=== PATIENT | female | born 1995 | race Caucasian/White ===

== ENCOUNTER 2017-11-22 13:46 | Emergency (ER) | payer SELFPAY ==
[2017-11-22 13:47] VITALS: BP 146/79; PULSE 88; RESP 16; TEMP 99; O2SAT 99
[2017-11-22] MEDS ORDERED: TYLE325T PO (16:16)
[2017-11-22] MEDS ORDERED: IBUP1TAB5 PO (16:16)
[2017-11-22] MEDS ORDERED: CHLO.12%30 SWISH-SPIT (17:02)
[2017-11-22] MEDS ORDERED: AUGM875T3 PO (17:02)
--- NOTE | 2017-11-22 17:05 | PD ---
HPI Chief Complaint: Oral / Dental Pain or Problem Time Seen by Provider: 16:24 Travel History International Travel<30 days: No Contact w/Intl Traveler<30days: No Traveled to known affect area: No History of Present Illness HPI 22-year-old female presents emergency department for evaluation of toothache and left cheek swelling 2 weeks. The pain is associated with tooth #17. Tooth has visible decay. Patient stated the pain was so severe it is difficult to open her jaw approximately a week ago. Upon assessment today and patient can open and shut her jaw without clicking, popping or pain. There is mild gingival erythema with abscess that is already open and draining. Patient denies any fever, chills, malaise. Patient denies any shortness breath, chest pain. Patient denies any IV drug use, smoking or alcohol use. PFSH Past Medical History ?: Not LMP: 10/31/17 Social History Tobacco Use: No Allergies-Medications (Allergen,Severity, Reaction): Coded Allergies: No Known Allergies (Verified Allergy, Unknown, 11/22/17) Reported Meds & Prescriptions Reported Meds & Active Scripts Active Reported Ibuprofen 400 Mg Tab 400 Mg PO Q8H PRN Tylenol (Acetaminophen) 325 Mg Tab 650 Mg PO Q4H PRN 14 Days Review of Systems Except as stated in HPI: all other systems reviewed are Neg Physical Exam Narrative GENERAL: Well-nourished, well-developed 22-year-old female patient in no acute distress. Nontoxic appearing. SKIN: Focused skin assessment warm/dry. HEAD: Normocephalic. Atraumatic. EYES: No scleral icterus. No injection or drainage. MOUTH: Mild gingival erythema with small abscess that is open and draining associated with tooth #17. Tooth #17 has obvious decay. Jaw can fully open and shut without clicking, popping or pain at this time. NECK: Supple, trachea midline. No JVD or lymphadenopathy. CARDIOVASCULAR: Regular rate and rhythm without murmurs, gallops, or rubs. RESPIRATORY: Breath sounds equal bilaterally. No accessory muscle use. GASTROINTESTINAL: Abdomen soft, non-tender, nondistended. Data Data Last Documented VS Vital Signs Date Time Temp Pulse Resp B/P (MAP) Pulse Ox O2 Delivery O2 Flow Rate FiO2 11/22/17 13:47 99.0 88 16 146/79 (101) 99 MDM Medical Decision Making Medical Screen Exam Complete: Yes Emergency Medical Condition: Yes Differential Diagnosis Different diagnosis includes limited to gingivitis, pulpitis, dental abscess, dentalgia Narrative Course Upon assessment it is noted that tooth #17 has an open and draining abscess with mild gingival erythema surrounding. Patient will be discharged home with a prescription for Augmentin and chlorhexidine mouthwash. Patient given instructions to follow up with local dentist or return to the emergency department with any worsening condition. Diagnosis Primary Impression: Dental abscess Referrals: [facility] [address] Dentist Patient Instructions: Dental Abscess (ED), General Instructions Additional Instructions: Please return to emergency department if your symptoms return or worsen. Follow up with dentist. Take medications as prescribed. May take Tylenol or ibuprofen as needed for pain or fevers. May use clove oil to help manage dental pain. Med/Other Pt SpecificInfo: Prescription(s) given Scripts Chlorhexidine Gluconate (Mouth) Liq (Chlorhexidine Gluconate (Mouth) Liq) 0.12% Soln 15 ML SWISH-SPIT BID, #473 ML 0 Refills Prov: Missy Chahal 11/22/17 Amoxicillin-Clavulanate (Augmentin) 875-125 Mg Tab 1 TAB PO BID for Infection for 7 Days, #14 TAB 0 Refills Prov: Missy Chahal 11/22/17 Disposition: 01 DISCHARGE HOME Condition: Stable Missy Chahal Nov 22, 2017 17:05
== END 2017-11-22 17:15 | disposition home or self-care (01) ==
LOC: NEPK 13:46
DX: K04.7 Periapical abscess without sinus (principal)
CPT/HCPCS: 99284